=== PATIENT | male | born 1985 | race Caucasian/White ===

== ENCOUNTER 2018-03-14 16:04 | Emergency (ER) | payer BC, OTHER ==
[~2018-03-14] VITALS: Ht 188 cm; Wt 187.0 kg
[2018-03-14 17:12] VITALS: BP 153/100
== END 2018-03-14 17:38 | disposition home or self-care (01) ==
LOC: ED 17:32
DX: G51.0 Bell's palsy (principal); R51 Headache
CPT/HCPCS: 70450; 93005; 99284